=== PATIENT | male | born 1995 | race Hispanic/Latino ===

== ENCOUNTER 2017-07-25 17:56 | Emergency (ER) | payer OTHER ==
[2017-07-25 18:01] VITALS: TEMP 98
[2017-07-25 19:06] LABS: URINE BILIRUBIN NEGATIVE (NEGATIVE); URINE BLOOD NEGATIVE (NEGATIVE); URINE CLARITY SLIGHTY-CLOUDY (Clear); URINE COLOR YELLOW (YELLOW); URINE GLUCOSE (UA) NEG (Normal); URINE LEUKOCYTE ESTERASE NEG Leu/uL (Negative); URINE PROTEIN 30 mg/dL (NEGATIVE)
--- NOTE | 2017-07-25 20:48 | ED PDOC ---
HPI: Male Pain Chief Complaint (Provider): Male Genitourinary History Per: Patient Onset/Duration Of Symptoms: Hrs Current Symptoms Are (Timing): Still Present Severity: None Additional Complaint(s): 22 year old male presents to the ED complaining of right groin pain. While at a concert three days ago, patient states he sustained direct trauma to the right testicle. Patient is experiencing intermittent pain to the right groin. Since incident, patient has been sexually active. Patient reports no issues with erectile functions. Denies any dysuria, swelling to groin area, other medical complaints. PMD: None Provided <Alexa Tony - Last Filed: 07/25/17 21:19> <Carley Rodriguez PA-C - Last Filed: 07/26/17 21:55> Time Seen by Provider: 07/25/17 18:44 Chief Complaint (Nursing): Male Genitourinary Past Medical History Reviewed: Historical Data, Nursing Documentation, Vital Signs Vital Signs: Last Vital Signs Temp 98 F 07/25/17 17:59 Pulse 94 H 07/25/17 21:09 Resp 18 07/25/17 21:09 BP 119/59 L 07/25/17 21:09 Pulse Ox 100 07/25/17 21:09 - Surgical History Surgical History: No Surg Hx - Family History Family History: States: Unknown Family Hx <Alexa Tony - Last Filed: 07/25/17 21:19> Vital Signs: Last Vital Signs Temp 98 F 07/25/17 17:59 Pulse 107 H 07/25/17 17:59 Resp 16 07/25/17 17:59 BP 126/60 07/25/17 17:59 Pulse Ox 99 07/25/17 17:59 - Family History Family History: States: Unknown Family Hx <Carley Rodriguez PA-C - Last Filed: 07/26/17 21:55> - Home Medications Home Medications: Ambulatory Orders Medication Instructions Recorded Cyclobenzaprine HCl [Flexeril] 10 mg PO BID PRN #12 tab 12/26/14 Ibuprofen [Motrin Tab] 800 mg PO Q6H PRN #20 tab 12/26/14 traMADol [Ultram] 50 mg PO Q6H PRN #15 tab 12/26/14 - Allergies Allergies/Adverse Reactions: Allergies Allergy/AdvReac Type Severity Reaction Status Date / Time No Known Allergies Allergy Verified 12/25/14 23:53 Review of Systems ROS Statement: Except As Marked, All Systems Reviewed And Found Negative Genitourinary Male: Positive for: Other (testicular pain) <Alexa Tony - Last Filed: 07/25/17 21:19> Physical Exam - Reviewed Nursing Documentation Reviewed: Yes Vital Signs Reviewed: Yes - Physical Exam Appears: Positive for: Non-toxic, No Acute Distress Head Exam: Positive for: ATRAUMATIC, NORMOCEPHALIC Skin: Positive for: Normal Color, Warm, Dry Eye Exam: Positive for: Normal appearance, EOMI, PERRL ENT: Positive for: Normal ENT Inspection Neck: Positive for: Normal, Painless ROM, Supple Cardiovascular/Chest: Positive for: Regular Rate, Rhythm. Negative for: Murmur Respiratory: Positive for: Normal Breath Sounds. Negative for: Respiratory Distress Gastrointestinal/Abdominal: Positive for: Normal Exam, Soft. Negative for: Tenderness Male Genital Exam: Positive for: testicular tenderness (R) (tenderness to palpation ), other (no discoloration; normal contour, normal penis, no evidence of trauma.). Negative for: erythema, hernia mass Back: Positive for: Normal Inspection Extremity: Positive for: Normal ROM. Negative for: Pedal Edema, Deformity Neurologic/Psych: Positive for: Alert, Oriented. Negative for: Motor/Sensory Deficits <Alexa Tony - Last Filed: 07/25/17 21:19> - ECG O2 Sat by Pulse Oximetry: 99 (RA) <Alexa Tony - Last Filed: 07/25/17 21:19> - ECG O2 Sat by Pulse Oximetry: 99 <Carley Rodriguez PA-C - Last Filed: 07/26/17 21:55> Medical Decision Making Medical Decision Making: Time: 1837 Impression: Contusion of right testicle Rule out Torsion, Time: 1855 Plan: -- Urinalysis -- US - no evidence of torsion or hematoma. Diagnosed with testicular contusion. Patient is safe for discharge. Scribe Attestation: Documented by Anayeli Smith, acting as a scribe Dr. Alexa Tony. Provider Scribe Attestation: All medical record entries made by the Scribe were at my direction and personally dictated by me. I have reviewed the chart and agree that the record accurately reflects my personal performance of the history, physical exam, medical decision making, and the department course for this patient. I have also personally directed, reviewed, and agree with the discharge instructions and disposition. <Alexa Tony - Last Filed: 07/25/17 21:19> Medical Decision Making: US Scrotum FINDINGS: Right testicle: Unremarkable. No mass. No torsion. Left testicle: Unremarkable. No mass. No torsion. Epididymides: No acute finding. Simple right epididymal cyst measures up to 0.6 cm. Scrotum: Unremarkable. IMPRESSION: No testicular torsion or other acute finding. Dictated and Authenticated by: Arnoldo Barnes MD 07/25/2017 7:34 PM Eastern Time ([place] & [place]) <Carley Rodriguez PA-C - Last Filed: 07/26/17 21:55> Disposition <Alexa Tony - Last Filed: 07/25/17 21:19> - Disposition Disposition Time: 21:24 <Carley Rodriguez PA-C - Last Filed: 07/26/17 21:55> - Clinical Impression Clinical Impression: Contusion of testicle - Disposition Referrals: [facility] [Outside] Condition: FAIR Forms: [facility] [employer] (Welsh) Print Language: SAO TOMEAN
[2017-07-25 21:09] VITALS: BP 119/59; PULSE 94; RESP 18
[2017-07-25 21:24] VITALS: O2SAT 99
--- NOTE | 2017-07-25 22:16 | US ---
HISTORY: testicular pain s/p trauma TECHNIQUE: Realtime sonography through the scrotum with color and doppler flow. COMPARISON: None Available. FINDINGS: RIGHT TESTICLE: Measures 5.1 x 2.4 x 3 cm. Normal echotexture and flow. RIGHT EPIDIDYMIS: Epididymal head measures 1.5 x 0.8 x 0.7 cm. There is a small cyst seen at the right epididymis measures 0.6 x 0.4 x 0.6 centimeter. LEFT TESTICLE: Measures 5.3 x 2 x 3 cm. Normal echotexture and flow. LEFT EPIDIDYMIS: Epididymal head measures 0.9 x 0.5 x 0.7 cm. Grossly unremarkable appearance with normal flow. HYDROCELE: None. VARICOCELE: None. OTHER FINDINGS: None. IMPRESSION: No evidence of testicular torsion. No evidence of significant hydrocele or hematoma in the scrotum. Small cyst at the right epididymal head.
== END 2017-07-25 21:00 | disposition home or self-care (01) ==
LOC: H.ER 17:56
DX: S30.22XA Contusion of scrotum and testes, initial encounter (principal); W22.8XXA Striking against or struck by other objects, initial encounter; Y92.89 Other specified places as the place of occurrence of the external cause

== ENCOUNTER 2018-07-08 22:44 | Emergency (ER) | payer OTHER ==
[2018-07-08 22:56] VITALS: BP 129/73; PULSE 80; RESP 18; TEMP 98.4; O2SAT 97
--- NOTE | 2018-07-08 23:22 | ED PDOC ---
HPI: General Adult Time Seen by Provider: 07/08/18 23:01 Chief Complaint (Nursing): GI Problem Chief Complaint (Provider): vomited blood History Per: Patient History/Exam Limitations: no limitations Onset/Duration Of Symptoms: Hrs Current Symptoms Are (Timing): Gone Now Additional Complaint(s): 23 y/o male presents for evaluation of blood in vomit. Patient states he was at a bar and drank one beer, and then noticed it wasn't "sitting right" so he went to the bathroom and vomited large amount of liquid and then noticed small amount of bright red blood at the end. Patient states he immediately felt better but was concerned about the blood. Denies fever, headache, dizziness, nausea, throat pain, chest pain, shortness of breath, palpitations, abdominal pain, ur inary symptoms, changes in bowel movements. Past Medical History Reviewed: Historical Data, Nursing Documentation, Vital Signs Vital Signs: Last Vital Signs Temp 98.4 F 07/08/18 22:55 Pulse 80 07/08/18 22:55 Resp 18 07/08/18 22:55 BP 129/73 07/08/18 22:55 Pulse Ox 97 07/08/18 22:55 Primary Care Provider: FAMILY PROVIDER,NO - Medical History PMH: No Chronic Diseases - Surgical History Surgical History: No Surg Hx - Family History Family History: States: Unknown Family Hx - Living Arrangements Living Arrangements: With Family - Home Medications Home Medications: Ambulatory Orders Medication Instructions Recorded Cyclobenzaprine HCl [Flexeril] 10 mg PO BID PRN #12 tab 12/26/14 Ibuprofen [Motrin Tab] 800 mg PO Q6H PRN #20 tab 12/26/14 traMADol [Ultram] 50 mg PO Q6H PRN #15 tab 12/26/14 Famotidine [Pepcid] 20 mg PO BID #10 tab 07/08/18 - Allergies Allergies/Adverse Reactions: Allergies Allergy/AdvReac Type Severity Reaction Status Date / Time No Known Allergies Allergy Verified 12/25/14 23:53 Review of Systems ROS Statement: Except As Marked, All Systems Reviewed And Found Negative Gastrointestinal: Positive for: Vomiting Physical Exam - Reviewed Nursing Documentation Reviewed: Yes Vital Signs Reviewed: Yes - Physical Exam Appears: Positive for: Well, Non-toxic, No Acute Distress Head Exam: Positive for: ATRAUMATIC, NORMAL INSPECTION, NORMOCEPHALIC Skin: Positive for: Normal Color Eye Exam: Positive for: Normal appearance ENT: Positive for: Normal ENT Inspection Cardiovascular/Chest: Positive for: Regular Rate, Rhythm Respiratory: Positive for: Normal Breath Sounds Gastrointestinal/Abdominal: Positive for: Normal Exam Back: Positive for: Normal Inspection Extremity: Positive for: Normal ROM Neurological/Psych: Positive for: Awake, Alert, Oriented (x3) - ECG O2 Sat by Pulse Oximetry: 97 - Progress ED Course And Treament: -Pepcid PO Patient tolerated PO in the ED. No abdominal pain, nausea noted Patient educated on findings, discharged with rx Pepcid Advised follow PMD/GI Advised to avoid alcohol, spicy/greasy foods for a few days Return precautions given Disposition - Clinical Impression Clinical Impression: Symptom of blood in vomit - Patient ED Disposition Is Patient to be Admitted: No Counseled Patient/Family Regarding: Studies Performed, Diagnosis, Need For Followup - Disposition Referrals: Aurelio Deleon MD, PhD [Staff Provider] - Disposition: Routine/Home Disposition Time: 23:32 Condition: IMPROVED Prescriptions: Famotidine [Pepcid] 20 mg PO BID #10 tab Instructions: Nausea and Vomiting, Adult Forms: [facility] (Japanese)
== END 2018-07-08 23:47 | disposition home or self-care (01) ==
LOC: H.ER 22:44
DX: K92.0 Hematemesis (principal)